=== PATIENT | female | born 1980 | race Caucasian/White ===

== ENCOUNTER 2019-06-07 09:57 | Outpatient (CLI) | payer OTHER ==
--- NOTE | 2019-06-08 08:27 | XRAY Report ---
Reason: HIP PAIN Procedure Date: 06/07/2019 Accession Number: [id number] / [id number] Procedure: XRN - Hip w/Pelvis 2-3V RT CPT Code: Final Report FULL RESULT: EXAM: RIGHT HIP RADIOGRAPHY EXAM DATE: 06/07/2019 10:16 AM. CLINICAL HISTORY: HIP PAIN. COMPARISON: None. TECHNIQUE: 2 views. FINDINGS: Bones: Normal. No fractures or bone lesion. Joints: Normal. No dislocation. The hip joint space is preserved. Soft Tissues: No soft tissue swelling. IUD noted. Incidental pelvic phleboliths are present. IMPRESSION: 1. No fracture. 2. Normal alignment. 3. If symptoms persist, recommend MRI examination. [facility]
== END 2019-06-07 09:58 | disposition home or self-care (01) ==
LOC: DI.N 09:57
PROVIDERS: ATTEND Internal Medicine
DX: M25.551 Pain in right hip (principal)